=== PATIENT | male | born 1960 | race Caucasian/White ===

== ENCOUNTER 2022-03-14 07:51 | Day surgery (SDC) | payer OTHER ==
[2022-03-14] VITALS (11 sets, daily range): BP systolic 106–142; BP diastolic 66–89; PULSE 56–69; TEMP 98
[~2022-03-14] VITALS: Ht 177.8 cm; Wt 127.3 kg
[2022-03-14 08:42] LABS: HEMATOCRIT 41.9 % (42.0-52.0); MEAN CELL VOLUME 84 fl (80.0-100.0); MEAN CORPUSCULAR HEMOGLOBIN 28 pg (27-31); MEAN CORPUSCULAR HGB CONC 33 g/dl (33.0-37.0); MEAN PLATELET VOLUME 9.3 fl (7.4-10.4); PLATELET COUNT 196 K/mm3 (130-400); RED BLOOD COUNT 5.01 M/mm3 (4.20-5.60)
[2022-03-14] MEDS ORDERED: ZESTRIL 10MG10 MG PO (08:44)
[2022-03-14] MEDS ORDERED: LIPITOR 40MG TA40 MG PO (08:44)
[2022-03-14] MEDS ORDERED: TOPROL XL 50MG50 MG PO (08:45)
[2022-03-14] MEDS ORDERED: SYNTHROID 0.10.15 MG PO (08:46)
[2022-03-14 08:48] LABS: INR 1.3 (0.8-3.0); PROTHROMBIN TIME 14.8 SECONDS (9.7-12.8)
[2022-03-14] MEDS ORDERED: GLUCOPHAGE500 MG/TAB PO (08:48)
[2022-03-14] MEDS ORDERED: COUMADIN 5MG5 MG/TAB PO (08:49)
[2022-03-14 08:51] LABS: PARTIAL THROMBOPLASTIN TIME 34.4 SECONDS (26.0-37.0)
[2022-03-14 09:09] LABS: CALCIUM 8.7 mg/dL (8.4-10.2); CREATININE, serum 0.78 mg/dL (0.72-1.25); POTASSIUM 4.3 mmol/L (3.5-4.5)
--- NOTE | 2022-03-14 09:50 | NUR ---
See merge for all medication, assessment, intervention, and vital sign times.
--- NOTE | 2022-03-14 13:15 | NUR ---
DC instructions reviewed with pt and . Both express understanding. Air was removed from TR band in 2 ml increments with no bleeding or complications. Rt radial puncture site dressed with folded 2x2 and bandaid. Pt assisted out to 's car by wheelchair.
== END 2022-03-14 13:15 | disposition home or self-care (01) ==
LOC: COL.CAR 07:51
PROVIDERS: Internal Medicine Cardiovascular Disease
DX: I25.10 Atherosclerotic heart disease of native coronary artery without angina pectoris (principal); Z95.2 Presence of prosthetic heart valve
CPT/HCPCS: C1769; J1644; J2250; J3010

== ENCOUNTER 2022-03-24 09:08 | Inpatient (IN) | payer OTHER ==
[~2022-03-24] VITALS: Ht 177.8 cm; Wt 126.5 kg
[~2022-03-24 09:08] MED LIST: COUMADIN 5MG5 MG/TAB PO; GLUCOPHAGE500 MG/TAB PO; LIPITOR 40MG TA40 MG PO; SYNTHROID 0.10.15 MG PO; TOPROL XL 50MG50 MG PO; ZESTRIL 10MG10 MG PO
[2022-05-03] VITALS (10 sets, daily range): BP systolic 90–129; BP diastolic 57–80; PULSE 62–94; TEMP 97.3–98.2
[2022-05-03] MEDS ORDERED: LOVENOX 100100 MG/ML SQ (05:48)
[2022-05-03] MEDS ORDERED: COUMADIN 5MG5 MG/TAB PO (05:49)
[2022-05-03 06:13] LABS: PROTHROMBIN TIME 11.9 SECONDS (9.7-12.8)
--- NOTE | 2022-05-03 06:20 | NUR ---
The patient ambulated back to [facility] [facility] independently using a steady gait and appeared to tolerate the activity well. Vital signs obtained. Consent signed. 18G IV started in left hand with one stick, LR infusing without difficulty. Blood obtained from IV start for lab as ordered. Assessment completed. Scrub to right hip performed. TRINO hose placed to left leg. Call light is within reach. brought back to be at his bedside. Warm blanket provided. Denies any further needs.
--- NOTE | 2022-05-03 11:50 | NUR ---
PT TO ROOM 332 PER BED WITH REPORT FROM VIVI ARNETT @2804. PT IS DROWSEY BUT ANSWERS TO VERBAL. LUNGS CTA, BOWEL SOUNDS PRESENT. DRESSING TO RIGHT HIP CDI WITH OCCLUSIVE BULKY DRESSING IN PLACE. IV TO RFA. SCDS BILATERALLY. VSS.
--- NOTE | 2022-05-03 19:00 | NUR ---
RECEIVED CHANGE OF SHIFT REPORT FROM DAY SHIFT RN.
--- NOTE | 2022-05-03 20:00 | NUR ---
DECREASED ROM TO R HIP/LEG DUE TO SURGERY. DENIES NUMBNESS/TINGLING TO EXTREMITIES. DENIES CHEST PAIN/SOA/NAUSEA AT THIS TIME. AT BEDSIDE. IV FLUIDS INFUSING WITH NO PROBLEMS. REPORTS NO PROBLEMS WITH VOIDING AT THIS TIME.
[2022-05-04 00:15] VITALS: BP 136/71; PULSE 87; TEMP 97.4
[2022-05-04 03:27] VITALS: BP 120/58; PULSE 76; TEMP 97.6
[2022-05-04 06:19] LABS: HEMOGLOBIN 10.7 g/dl (13.5-18.0)
[2022-05-04 06:33] LABS: HEMATOCRIT 33.1 % (42.0-52.0)
[2022-05-04 06:42] LABS: INR 1.1 (0.8-3.0); PROTHROMBIN TIME 12.7 SECONDS (9.7-12.8)
--- NOTE | 2022-05-04 07:16 | NUR ---
CHANGE OF SHIFT REPORT GIVEN TO DAY SHIFT JESSE ARNETT
[2022-05-04 07:25] VITALS: BP 85/46; PULSE 65; TEMP 97.9
--- NOTE | 2022-05-04 07:25 | NUR ---
resting in bed, full assessment completed, see interventions for further info, has ordered breakfast
--- NOTE | 2022-05-04 08:05 | NUR ---
assisted up and into bathroom, moves with slow steady gait, had breakfast and tolerated well
--- NOTE | 2022-05-04 08:59 | NUR ---
ambulated in [place] with therapy and now resting in chair, called nurse and stated was feeling a little dizzy and nauseated, chair laid back and cool cloth to forehead, after a few minutes he states he is starting to feel a little better, at bedside
--- NOTE | 2022-05-04 09:20 | NUR ---
remains resting with head back, states dizziness is better and continues to have some mild nausea
--- NOTE | 2022-05-04 09:30 | NUR ---
occupational therapy in to work with patient
--- NOTE | 2022-05-04 09:40 | NUR ---
Initial visit; Patient and his thanked Iron Setter for looking in on him and offering God's blessings. Family has no muslim affiliation and it appears that they are not comfortable with conversation.
--- NOTE | 2022-05-04 09:45 | NUR ---
BP 109/63 and P 67, continues to c/o some nausea
[2022-05-04 09:48] VITALS: BP 109/63; PULSE 67; TEMP 97.7
--- NOTE | 2022-05-04 10:15 | NUR ---
sitting up in chair now and denies dizziness, still having nausea, provided 7-up and also given zofran 4mg
--- NOTE | 2022-05-04 10:45 | NUR ---
remains in chair but now appears to be sleeping
--- NOTE | 2022-05-04 11:53 | NUR ---
is feeling much better now, assisted up and into bathroom by LARRIMAN HELPER
[2022-05-04 12:16] VITALS: BP 95/58; PULSE 78; TEMP 97.8
--- NOTE | 2022-05-04 13:18 | NUR ---
ambulating in [place] with physical therapy
--- NOTE | 2022-05-04 13:51 | NUR ---
occupational therapy in to work with patient and assist with a shower, occlusive dressing removed, incision CD&I and covered with aquacel dressing
--- NOTE | 2022-05-04 14:57 | NUR ---
had shower with occupational therapy and is now resting in chair, denies pain or needs
[2022-05-04] MEDS ORDERED: CELEBREX 200MG200 MG PO (15:25)
[2022-05-04] MEDS ORDERED: ROXICODONE 55 MG/TAB PO (15:26)
[2022-05-04] MEDS ORDERED: SENOKOT S 50 MG1 TAB PO (15:26)
--- NOTE | 2022-05-04 15:50 | NUR ---
discharge instructions given to patient and his , verbalizes understanding
--- NOTE | 2022-05-04 16:09 | NUR ---
discharged per WC
== END 2022-05-04 16:09 | disposition home or self-care (01) | DRG 470 ==
LOC: INPTSU 05-03 05:23 → SURG 05-03 07:30
PROVIDERS: Nurse Anesthetist, Certified Registered; ADMIT Orthopaedic Surgery
PROC: 0SR904Z Replacement of Right Hip Joint with Ceramic on Polyethylene Synthetic Substitute, Open Approach (ICD-10-PCS; principal; 2022-05-03 07:30)
DX: M16.11 Unilateral primary osteoarthritis, right hip (principal); E78.5 Hyperlipidemia, unspecified; I25.10 Atherosclerotic heart disease of native coronary artery without angina pectoris; E11.9 Type 2 diabetes mellitus without complications; G47.33 Obstructive sleep apnea (adult) (pediatric); Z79.01 Long term (current) use of anticoagulants; Z85.9 Personal history of malignant neoplasm, unspecified; Z79.890 Hormone replacement therapy; Z79.84 Long term (current) use of oral hypoglycemic drugs; Z23 Encounter for immunization
CPT/HCPCS: A4314; A9284; C1713; C1776; J0690; J1650; J2250; J2370; J2405; J2704; J3010; J7030; J7120

== ENCOUNTER 2022-08-23 07:43 | Day surgery (SDC) | payer OTHER ==
[~2022-08-23] VITALS: Ht 177.8 cm; Wt 126.8 kg
[2022-08-23] VITALS (9 sets, daily range): BP systolic 107–137; BP diastolic 67–90; PULSE 56–99; TEMP 98.9
[~2022-08-23 07:43] MED LIST changes: +CELEBREX 200MG200 MG PO; +LOVENOX 100100 MG/ML SQ; +ROXICODONE 55 MG/TAB PO; +SENOKOT S 50 MG1 TAB PO
[2022-08-23 10:15] LABS: INR 1.1 (0.8-3.0); PROTHROMBIN TIME 12.9 SECONDS (9.7-12.8)
[2022-08-23] MEDS ORDERED: LIPITOR 40MG TA40 MG PO (11:01)
[2022-08-23] MEDS ORDERED: PRINIVIL10 MG PO (11:02)
[2022-08-23] MEDS ORDERED: TOPROL XL 50MG50 MG PO (11:04)
[2022-08-23] MEDS ORDERED: SYNTHROID 0.10.15 MG PO (11:05)
[2022-08-23] MEDS ORDERED: GLUCOPHAGE500 MG/TAB PO (11:07)
[2022-08-23] MEDS ORDERED: COUMADIN 5MG5 MG/TAB PO ×2 (11:09→11:11)
--- NOTE | 2022-08-23 16:30 | NUR ---
PATIENT ARRIVED TO THE FLOOR AT 1630. PATIENT VSS. SLIGHLTY DROWSY AND CONFUSED. PLEASANT. PATIENT IS SUPINE IN BED WITH AT BEDSIDE
--- NOTE | 2022-08-23 18:35 | NUR ---
PATIENT ARRIVED TO FLOOR POST L HIP SURGERY AT 1630. PATIENT HAD SPINAL ANESTHESIA AND WAS STILL WAKING UP FROM SURGERY. PATIENT HAS AN ICE PACK ON THE LEFT HIP. C/O PAIN AND RECEIVED SCHEDULED TYLENOL. PATIENT IS ON NS FLUIDS AT 75ML. VSS. HELD INSULIN BC PATIENT DID NOT WANT TO EAT A MEAL, AND BLOOD SUGAR WAS 85.
--- NOTE | 2022-08-23 22:35 | NUR ---
Patient A/O x 4, VSS, head to toe assessment done, at 2230 patient was nauseated and offered him sprite, few minutes after he vomited out 100ml of emesis, he felt fine after and denies the need for nausea meds, dressing to left hip CD & I, SCD's on, call light and personal items within reach.
[2022-08-24 00:21] VITALS: BP 126/67; PULSE 87; TEMP 97.8
[2022-08-24 04:40] VITALS: BP 112/59; PULSE 77; TEMP 98.2
[2022-08-24 04:41] VITALS: BP 112/59; PULSE 77; TEMP 98.2
[2022-08-24 07:17] LABS: INR 1.2 (0.8-3.0); PROTHROMBIN TIME 13.5 SECONDS (9.7-12.8)
[2022-08-24 07:25] LABS: HEMOGLOBIN 11.4 g/dl (13.5-18.0)
[2022-08-24 07:26] LABS: HEMATOCRIT 34.6 % (42.0-52.0)
[2022-08-24 08:17] VITALS: BP 122/65; PULSE 71; TEMP 98
--- NOTE | 2022-08-24 10:33 | NUR ---
Initial visit; Patient and his present. Patient thanked Filament Shaper for looking in on him and offering God's blessings. Phillip offered God's blessings to Filament Shaper as well and thanked her for the work she is doing.
--- NOTE | 2022-08-24 10:45 | NUR ---
PT UP TO [facility] WITH THERAPY. RETURNED USED BR AND THEN TO RECLINER. VSS. PT HAS HAD NAUSEA AND VOMITING AFTER THERAPY. IV ZOFRAN GIVEN ORDERED. DRESSING CHANGE COMPLETE WITH AQUACEL OVER INCISION. INCISION CDI WITH WELL APPROXIMATED EDGES. TEDS BILATERALLY. COUMADIN WITH LOVENOX BRIDGE FOR DVT PROFALAXIS.
--- NOTE | 2022-08-24 11:04 | NUR ---
SW met with patient to complete intake and discuss discharge plan. Patient reports that he lives at home in [place] with his Elaine ([phone]) whom is present at bedside. Patient reports to being independent with his ADL's and has a walker to assist with mobility. He has no home oxygen needs. PCP is Dr. Lakeisha May at [facility] and he utilizes [facility] for prescriptions. Patient reports that he does have a [facility] established listing his but left it at home. He asked about creating a new one so this facility has a copy, and SW informed him that if he was to do othat, it voids his already established one. Patient is already established with out patient PT at [facility] and his first appointment is 08/28. Patient is experiencing nausea w/ vomiting at this time. SW notifed patients RN. Discharge plan: Home with spouse and out patient therapy at [facility].
[2022-08-24 11:52] VITALS: BP 116/58; PULSE 69; TEMP 97.9
[2022-08-24] MEDS ORDERED: ULTRAM 50MG TAB50 MG PO (16:00)
[2022-08-24] MEDS ORDERED: CELEBREX 200MG200 MG PO (16:00)
[2022-08-24] MEDS ORDERED: ROXICODONE 55 MG/TAB PO (16:01)
[2022-08-24] MEDS ORDERED: SENOKOT S 50 MG1 TAB PO (16:02)
[2022-08-24 16:10] VITALS: BP 106/65; PULSE 80; TEMP 98.3
== END 2022-08-24 16:30 | disposition home or self-care (01) ==
LOC: SDCO 07:43 → SURG 16:31 → SDCO 08-24 16:30
PROVIDERS: Orthopaedic Surgery
DX: M16.12 Unilateral primary osteoarthritis, left hip (principal); I25.10 Atherosclerotic heart disease of native coronary artery without angina pectoris; E11.9 Type 2 diabetes mellitus without complications; Z79.01 Long term (current) use of anticoagulants; Z95.2 Presence of prosthetic heart valve; Z79.84 Long term (current) use of oral hypoglycemic drugs; Z85.850 Personal history of malignant neoplasm of thyroid
CPT/HCPCS: OP; A4314; A9284; C1713; C1776; J0690; J1650; J2250; J2405; J2704; J7030; J7120